=== PATIENT | male | born 1985 | race Caucasian/White ===

== ENCOUNTER 2023-03-30 09:22 | Outpatient (CLI) | payer OTHER ==
--- NOTE | 2023-03-30 14:22 | MRI Report ---
PROCEDURE: KNEE WO - LT INDICATIONS: KNEE PAIN TECHNIQUE: Noncontrast sagittal PD fast spin echo and T2 fast spin echo with fat saturation, sagittal 3-D gradie nt sequence with fat saturation; coronal T1 spin echo and PD fast spin echo with fat saturation, and axial PD fast spin echo with fat saturation through the knee. COMPARISON: None. FINDINGS: Image quality: Excellent Menisci Medial: Mild internal signal on T2-weighted images, without discrete tear Lateral: No discrete tear Cruciate ligaments: Intact Medial structures MCL: Intact Pes anserine tendons: Intact Semimembranosus: Intact Lateral structures LCL: Mild thickening of the proximal aspect, likely from prior injury. Biceps femoris: Mild thickening at the distal aspect near the insertion, likely from prior injury. IT band: Intact Popliteus tendon: Intact Anterior structures Extensor mechanism: Mild prepatellar edema. Mild quadriceps insertional tendinopathy. Fat pads: Mild edema Hoffa's fat pad Medial retinaculum: Intact. Trochlea: Trochlea appears shallow. TT TG distance is under 1.5 cm. Bone and joint Bones: Mild diffuse edema within the patella, particularly at the lateral aspect. Cartilage: Significant cartilage heterogeneity, with subchondral edema at the median ridge with focal fissuring. Mild heterogeneity seen at the other compartments, without full-thickness defect or subch ondral edema. Joint space: Mild joint effusion Manuel's cyst: None Soft tissues: No significant vascular or other soft tissue pathology. IMPRESSION: Mild diffuse edema of the patella, particularly at the lateral aspect, likely an osseous contusion. S ubchondral edema with cartilaginous heterogeneity and fissuring in the median ridge, out of proportio n to the degree of degenerative changes elsewhere. This may represent a traumatic chondral injury alisa nelli focal degenerative changes depending on clinical history. Shallow trochlea. Mild Hoffa's fat pad edema. Correlate with clinical signs of maltracking. Intact cruciate and collateral ligaments. Mild joint effusion. Reviewed by: Kehinde Lima MD on 03/30/2023 2:21 PM PST Approved by: Kehinde Lima MD on 03/30/2023 2:21 PM PST Station ID: [id number]
--- NOTE | 2023-03-30 14:29 | MRI Report ---
PROCEDURE: KNEE WO - RT INDICATIONS: KNEE PAIN TECHNIQUE: Noncontrast sagittal PD fast spin echo and T2 fast spin echo with fat saturation, sagittal 3-D gradie nt sequence with fat saturation; coronal T1 spin echo and PD fast spin echo with fat saturation, and axial PD fast spin echo with fat saturation through the knee. COMPARISON: Same-day contralateral knee MRI FINDINGS: Image quality: Good Menisci Medial: No discrete tear. Mild signal in the posterior horn may be due to some fraying. Lateral: No discrete tear. Cruciate ligaments: Intact Medial structures MCL: Intact Pes anserine tendons: Intact Semimembranosus: Intact Lateral structures LCL: Mild thickening at the proximal aspect with mild signal abnormality surrounding the ligament. Biceps femoris: Mild thickening at the insertion likely to due to prior injury IT band: Intact Popliteus tendon: Mild insertional tendinopathy. Anterior structures Extensor mechanism: Mild quadriceps insertional tendinopathy. There is also mild prepatellar edema. Fat pads: Mild to moderate Hoffa's fat pad edema, particularly at the superolateral corner. Medial retinaculum: Intact. Trochlea: Shallow morphology. TT TG distance is under 1.5 cm. Bone and joint Bones: Mild T2 signal within the patella diffusely. There is a focal bone contusion in the medial fem oral condyle. Cartilage: Significant heterogeneity and near full-thickness fissuring is seen in the patellar cartil age, particularly at the median ridge. No full-thickness defects identified elsewhere. Joint space: Mild joint effusion Manuel's cyst: None Soft tissues: No significant vascular or other soft tissue pathology. IMPRESSION: Focal bone contusion the medial femoral condyle. Mild edema diffusely in the patella, possibly traumatic or due to chronic repetitive injury. Signific ant heterogeneity of the patellar cartilage is out of proportion to the other compartments. Near full -thickness fissuring seen at the patellar median ridge. These may be traumatic or represent focal degenerative changes, the latter favored due to symmetry wi th the contralateral knee. Mild to moderate Hoffa's fat pad edema and shallow trochlea morphology, correlate clinically for sign s of maltracking. Intact cruciate and collateral ligaments. There may be an LCL proximal sprain. Mild quadriceps insert ional tendinopathy and mild prepatellar edema. Mild joint effusion. Reviewed by: Kehinde Lima MD on 03/30/2023 2:27 PM PST Approved by: Kehinde Lima MD on 03/30/2023 2:27 PM PST Station ID: [id number]
== END 2023-03-30 09:23 | disposition home or self-care (01) ==
LOC: DI 09:22
PROVIDERS: ATTEND Student in an Organized Health Care Education/Training Program
DX: S70.11XA Contusion of right thigh, initial encounter (principal); M67.863 Other specified disorders of tendon, right knee; M25.462 Effusion, left knee; R93.6 Abnormal findings on diagnostic imaging of limbs